=== PATIENT | male | born 1940 | race Caucasian/White ===

== ENCOUNTER → 2017-02-01 | Outpatient (CLI) | payer MEDICARE ==
--- NOTE | 2017-02-01 09:35 | CT ---
EXAMINATION TYPE: CT brain wo con DATE OF EXAM: 02/01/2017 9:31 AM COMPARISON: NONE HISTORY: Change in Memory CT DLP: 1014.[address] of the brain was performed. The ventricles, basal cisterns and sulci overlying the cerebral convexities demonstrate mild enlargem ent. There is no evidence for intracranial hemorrhage or sulcal effacement. There is decreased attenuation about the periventricular white matter and deep white matter of both c erebral hemispheres, compatible with chronic small vessel ischemia. Differential diagnosis does inclu de demyelination. No mass effects are seen.No midline shift. Osseous calvarium is intact. If symptoms persist consider MRI. IMPRESSION: 1. Age related atrophic and chronic small vessel ischemic change without acute intracranial process s een at this time.
== END | disposition home or self-care (01) ==
LOC: RADCTMAIN 09:09
PROVIDERS: ATTEND Internal Medicine
DX: F01.50 Vascular dementia, unspecified severity, without behavioral disturbance, psychotic disturbance, mood disturbance, and anxiety (principal)
CPT/HCPCS: 70450

== ENCOUNTER → 2019-10-09 | Outpatient (CLI) | payer MEDICARE ==
[~2019-10-09] MED LIST: REGADENOSON 0.4 MG/5 ML SYRINGE IV ONE
--- NOTE | 2019-10-09 11:21 | EST ---
EXERCISE STRESS DATE OF SERVICE: 10/09/2019 AGE: 79 SEX: Male HT: 5'10" WT: 160 pounds PROTOCOL: Lexiscan Cardiolite STAGE: DURATION OF EXERCISE: HEART RATE REST: 53 BLOOD PRESSURE REST: 148/93 MAXIMUM HEART RATE ACHIEVED: 106 MAXIMUM BLOOD PRESSURE: 148/93 85% MPHR: 100% MPHR: METS: INDICATIONS: Abnormal EKG CLINICAL INFORMATION: Mr. Roberto is a 73-year-old male patient who underwent Lexiscan stress test for an abnormal ECG. Baseline heart rate 53 beats per minute. Baseline blood pressure 148/93 mmHg. Baseline 12-lead ECG shows normal sinus rhythm with normal cardiac intervals. Patient received Lexiscan infusion per protocol. No significant change in heart rate or blood pressure. No ECG abnormalities noted. Nuclear portion of the stress test will be reported separately. MMODL / IJN: [id number] /
--- NOTE | 2019-10-09 11:57 | NM ---
EXAMINATION TYPE: NM stress lexiscan cardiolite DATE OF EXAM: 10/09/2019 COMPARISON: NONE HISTORY: Abnormal EKG TECHNIQUE: After the intravenous administration of 9.6 mCi Tc 99m Sestamibi - Cardiolite resting SPE CT images acquired 60 minutes post injection. The patient received 0.4mg Lexiscan, 25 mCi Tc 99m Sestamibi - Stress images obtained 40 minutes post injection FINDINGS: Review of stress and rest SPECT images demonstrates no distinct perfusion abnormality. Gated analysi s shows normal wall motion with an estimated left ventricular ejection fraction of 58 %. Abnormally e levated TID measured at 1.37. IMPRESSION: Abnormally elevated TID measured at 1.37. This can be seen in balanced 3 vessel ischemia or cardiomyopathy. A Yellow level critical message alert has been initiated for Neil Polanco MD via the [employer] Critical Results System on 10/09/2019 11:54 AM. This message alert has been sent to Neil Polanco MD v ia the preferences provided by the clinician for the receipt of Radiology Critical Findings. Message ID [id number].
== END | disposition home or self-care (01) ==
LOC: RADNMMAIN 08:14
PROVIDERS: ATTEND Internal Medicine
DX: R94.31 Abnormal electrocardiogram [ECG] [EKG] (principal)
CPT/HCPCS: 93017; 78452; A9500; J2785

== ENCOUNTER → 2019-10-31 | Outpatient (CLI) | payer MEDICARE ==
[~2019-10-31] MED LIST changes: +HEPARIN SODIUM 1,000 UN/ML (10ML VL) ONE; +LIDOCAINE 1% INJ 10MG/ML (20 ML MDV) ONE; -REGADENOSON 0.4 MG/5 ML SYRINGE IV ONE; +VERAPAMIL 2.5 MG/ML 2 ML AMP ONE
[2019-10-31 11:39] LABS: HCT 49.2 % (39.0-53.0); HGB 16.3 gm/dL (13.0-17.5); MCH 27.1 pg (25.0-35.0); MCHC 33.2 g/dL (31.0-37.0); MCV 81.6 fL (80.0-100.0); Mean Platelet Volume 6.4; Platelet Count 182 k/uL (150-450); RBC 6.03 m/uL (4.30-5.90); RDW 13.4 % (11.5-15.5); WBC 6.3 k/uL (3.8-10.6)
[2019-10-31 12:04] LABS: Potassium 4.3 mmol/L (3.5-5.1)
== END | disposition home or self-care (01) ==
LOC: LABPAT 11:07
PROVIDERS: ATTEND Internal Medicine Interventional Cardiology
DX: Z01.812 Encounter for preprocedural laboratory examination (principal)
CPT/HCPCS: 36415; 80051; 82565; 84520; 85027

== ENCOUNTER 2019-11-01 09:02 | Day surgery (SDC) | payer MEDICARE ==
[2019-10-31 10:38] VITALS: BMI 23.6
[~2019-11-01 09:02] MED LIST changes: +ALPRAZolam 0.25 MG TAB PO PRN; +ALPRAZolam 0.5 MG TAB PO PRN; +ASPIRIN 325 MG TAB PO STA; +ATORVASTATIN 80 MG TAB PO STA; -HEPARIN SODIUM 1,000 UN/ML (10ML VL) ONE; +HYDROmorphone 0.5 MG/0.5 ML SYRINGE IVP STA; -LIDOCAINE 1% INJ 10MG/ML (20 ML MDV) ONE; +NITROGLYCERIN SL TABS 0.4 MG TAB SUBLINGUAL PRN; +SODIUM CHLORIDE 0.9% 1,000 ML in EMPTY BAG 1 BAG IV ONE; -VERAPAMIL 2.5 MG/ML 2 ML AMP ONE; +hydrALAZINE HCL 20 MG/ML 1 ML VIAL IVP STA
[2019-11-01 09:29] VITALS: RESP 16; TEMP 97.9
[2019-11-01] MEDS ORDERED: SODIUM CHLORIDE 0.9% 1,000 ML IV ONE (09:32)
[2019-11-01] MEDS ORDERED: MIDAZOLAM 2 MG/2 ML VIAL IV ONE (10:27)
[2019-11-01] MEDS ORDERED: LIDOCAINE 1% INJ 10MG/ML (20 ML MDV) SQ ONE (10:28)
[2019-11-01] MEDS: VERAPAMIL SYRINGE (5 MG/10 ML) INTRAARTER ONE ×2 (10:29→10:39)
[2019-11-01] MEDS ORDERED: NITROGLYCERIN 1000MCG/10ML SYRINGE INTRACORON ONE (10:34)
[2019-11-01] MEDS ORDERED: IOPAMIDOL-370 125ML BTL INJ ONE (10:39)
[2019-11-01] MEDS ORDERED: RX INFO: IV CONTRAST WAS GIVEN 1 EACH MISC MISCELLANE PRN (10:48)
[2019-11-01] MEDS ORDERED: SODIUM CHLORIDE 0.9% 1,000 ML IV SCH (11:00)
--- NOTE | 2019-11-01 14:00 | CC ---
CARDIAC CATHETERIZATION REPORT DATE OF SERVICE: 11/01/2019 PERFORMING PHYSICIAN: Zachary Goins MD. PROCEDURES PERFORMED: 1. Selective right and left coronary angiogram. 2. Left heart catheterization. INDICATION: This is a 79-year-old gentleman who scheduled recently to undergo back surgery with L4- L5 laminectomy along with fusion, underwent a stress test by Dr. Polanco and the stress test revealed transient ischemic dilatation of the left ventricle. Because of that, a heart catheterization was advised. APPROACH: Right radial artery. COMPLICATION: None. LEVEL OF SEDATION: Moderate with sedation length of 13 minutes. PROCEDURE DESCRIPTION: After obtaining an informed consent, the patient was brought to the cardiac golf course laborer. The right radial artery was cannulated using micropuncture technique, the micropuncture wire passed easily, then I placed a 6-Portuguese sheath in the right radial artery. After that, I did give the patient 2 mg of verapamil IA and 10,000 units of heparin IV. I did selective right and left coronary angiogram. Selective right coronary angiogram was performed using JR4 catheter. Selective left coronary angiogram was performed using JL3.5 catheter. Left heart catheterization was performed using the JR4 catheter which crossed the aortic valve then I did pullback across the valve after the catheter was flushed. The procedure was completed without any complication. SELECTIVE CORONARY ANGIOGRAM: 1. The right coronary artery is a large caliber vessel and it is a codominant vessel. The proximal right coronary artery has disease, appeared to be in the range of 30% to 40%. The mid right appeared to be normal and gives rise into an acute marginal branch which seems to be normal. The right coronary artery appeared to have mild disease only distally. 2. The left main is angiographically normal. It bifurcates into LCX and LAD. 3. The LCX is a large caliber vessel and is a dominant vessel. The proximal LCX appeared to be normal and gives rise into a large OM branch which appeared to be angiographically normal. The mid circumflex is normal as well and the circumflex distally appeared to be normal and bifurcates into PDA and PLV branches, both appeared to be angiographically normal. 4. The LAD, the proximal LAD appeared to have mild disease only. It gives rise into a large diagonal branch which seems to be normal. The mid LAD and distal LAD appeared to be angiographically normal. 5. HEMODYNAMICS: The LVEDP was 10 mmHg without significant gradient across the aortic valve. CONCLUSION: 1. Mild coronary artery disease involving a medium-sized codominant right coronary artery. 2. Normal left ventricular end-diastolic pressure. POSTPROCEDURE MANAGEMENT: 1. Maximize medical treatment. 2. Follow up with the patient. DEVORAH / KRAIG: [id number] /
[2019-11-01 19:00] VITALS: BP 148/70; PULSE 54
== END 2019-11-01 15:25 | disposition home or self-care (01) ==
LOC: CATHCVL 09:02
PROVIDERS: ATTEND Internal Medicine Interventional Cardiology
DX: I25.110 Atherosclerotic heart disease of native coronary artery with unstable angina pectoris (principal); I10 Essential (primary) hypertension; E78.00 Pure hypercholesterolemia, unspecified; Z79.82 Long term (current) use of aspirin; Z79.899 Other long term (current) drug therapy
CPT/HCPCS: 93458; C1769; C1894; J2250; J2001; J1644; Q9967

== ENCOUNTER → 2023-09-07 | Outpatient (CLI) | payer MEDICARE ==
--- NOTE | 2023-09-07 15:57 | NM ---
EXAMINATION TYPE: NM bone scan whole body DATE OF EXAM: 09/07/2023 COMPARISON: NONE CLINICAL INDICATION: Male, 83 years old with history of R97.20 Elevated PSA; TECHNIQUE: Delayed whole-body scanning was performed following the injection of 24.2 mCi Tc 99m MDP. Images acquired 3 hours post injection. FINDINGS: Scattered increased areas of tracer activity such as at the bilateral shoulders, sternoclavicular kody nts, posterior elements of the cervical spine especially on the right, and towards the left in the mi d lumbar spine. Also extensive at the right base of the thumb and right knee. Photopenia at the left hip suggests prior hip replacement. Increased activity along the medial aspect of the left hindfoot i s nonspecific and could represent contamination or heterotopic ossification. No suspicious distributi on of tracer is seen. IMPRESSION: Extensive degenerative tracer activity as outlined above. No definite scintigraphic evidence for osse ous metastatic disease.
== END | disposition home or self-care (01) ==
LOC: RADNMMAIN 10:00
PROVIDERS: ATTEND Internal Medicine
DX: R97.20 Elevated prostate specific antigen [PSA] (principal)
CPT/HCPCS: 78306; A9503

== ENCOUNTER → 2023-10-04 | Outpatient (CLI) | payer MEDICARE ==
--- NOTE | 2023-10-04 10:30 | CT ---
EXAMINATION TYPE: CT brain wo con DATE OF EXAM: 10/04/2023 COMPARISON: 02/01/2017 HISTORY: vascular dementia, TIA CT DLP: 1090.4 mGycm Automated exposure control for dose reduction was used. FINDINGS: On changes of chronic sinusitis. Nasal septal deviation. Orbits are symmetric. Calvarium appears to b e intact. Craniocervical junction maintained. Moderate generalized degenerative change. There is no evidence of midline shift or mass effect. No ac [place] hemorrhage. There is advanced degenerative change of the atlantoaxial joint with pannus posterior ly. This results in a mild impression upon the cervical medullary junction. IMPRESSION: 1. Moderate degenerative and nonspecific mild white matter changes most typical of remote ischemia. 2. There is atlantoaxial degenerative change and a sizable posterior pannus which results in mild mas s effect upon the cervical spinal cord\ medullary junction. Recommend follow-up MRI.
== END | disposition home or self-care (01) ==
LOC: RADCTMAIN 09:59
PROVIDERS: ATTEND Internal Medicine
DX: F01.50 Vascular dementia, unspecified severity, without behavioral disturbance, psychotic disturbance, mood disturbance, and anxiety (principal); G45.9 Transient cerebral ischemic attack, unspecified; G93.89 Other specified disorders of brain; M47.891 Other spondylosis, occipito-atlanto-axial region; H16.429 Pannus (corneal), unspecified eye
CPT/HCPCS: 70450

== ENCOUNTER 2024-09-07 16:43 | Emergency (ER) | payer MEDICARE ==
[2024-09-07 16:48] VITALS: TEMP 98
--- NOTE | 2024-09-07 17:53 | ED ---
Head Injury HPI - General Chief complaint: Head Injury Stated complaint: Fall, head injury Time Seen by Provider: 09/07/24 17:00 Source: patient, family, RN notes reviewed Mode of arrival: ambulatory Limitations: no limitations - History of Present Illness Initial comments: 84-year-old male with history of dementia presents with for head injury leo or to arrival. Patient was retrieving the mail from the mailbox when he lost his balance over the decorative rock surrounding the mailbox and fell onto the concrete face first. Denies loss of consciousness. Believes this was a mechanical fall. Takes baby aspirin daily, otherwise no blood thinners. He has an abrasion to the forehead and bridge of nose. No other injuries. Denies chest pain, shortness of breath, headache, lightheadedness. States he can breathe through both nares. - Related Data Home Medications Medication Instructions Recorded Confirmed Aspirin 81 mg PO DAILY 10/31/19 11/01/19 Cyanocobalamin (Vitamin B-12) 1,000 mcg PO DAILY 10/31/19 11/01/19 [Vitamin B-12] Magnesium 200 mg PO DAILY 10/31/19 11/01/19 Memantine HCl/Donepezil HCl 1 each PO HS 10/31/19 11/01/19 [Namzaric 21 mg-10 mg Capsule] Naproxen Sodium [Aleve] 220 mg PO BID PRN 10/31/19 10/31/19 Hammond-3 Fatty Acids [Hammond-3] 1,000 mg PO DAILY 10/31/19 11/01/19 Previous Rx's Medication Instructions Recorded Cephalexin [Keflex] 500 mg PO Q12HR 5 Days #10 cap 09/07/24 Allergies/Adverse reactions: Allergies Allergy/AdvReac Type Severity Reaction Status Date / Time No Known Allergies Allergy Unverified 11/01/19 09:23 Review of Systems ROS Statement: Those systems with pertinent positive or pertinent negative responses have been documented in the HPI. ROS Other: All systems not noted in ROS Statement are negative. Past Medical History Past Medical History: Cancer, Dementia, Memory Impairment, Osteoarthritis (OA) Additional Past Medical History / Comment(s): hx. skin cancer lip, vascular dementia, supposed to have another back surgery next week [facility] History of Any Multi-Drug Resistant Organisms: None Reported Past Surgical History: Back Surgery, Hernia Repair, Joint Replacement Additional Past Surgical History / Comment(s): back surg. x2, left hip replaced & then revision Past Anesthesia/Blood Transfusion Reactions: Previous Problems w/ Anesthesia Additional Past Anesthesia/Blood Transfusion Reaction / Comment(s): very slow to wake up Past Psychological History: No Psychological Hx Reported Past Alcohol Use History: None Reported Past Drug Use History: None Reported - Past Family History Mother Family Medical History: No Reported History General Exam Limitations: no limitations General appearance: alert, in no apparent distress Head exam: Present: normocephalic, other (Abrasion present on forehead and bridge of nose. Minimal active bleeding. There is a nasal deformity present.) Eye exam: Present: normal appearance, PERRL, EOMI. Absent: scleral icterus, conjunctival injection, periorbital swelling Pupils: Present: normal accommodation ENT exam: Present: normal oropharynx, other (Nares patent bilaterally) Neck exam: Present: normal inspection. Absent: tenderness, meningismus, lymphadenopathy Respiratory exam: Present: normal lung sounds bilaterally. Absent: respiratory distress, wheezes, rales, rhonchi, stridor Cardiovascular Exam: Present: regular rate, normal rhythm, normal heart sounds. Absent: systolic murmur, diastolic murmur, rubs, gallop, clicks Neurological exam: Present: alert, oriented X3, CN II-XII intact Psychiatric exam: Present: normal affect, normal mood Skin exam: Present: warm, dry, intact, normal color. Absent: rash Course Vital Signs 09/07/24 16:44 Temperature 98 F Pulse Rate 66 Respiratory 16 Rate Blood Pressure 155/79 O2 Sat by Pulse 98 Oximetry Medical Decision Making - Medical Decision Making Was pt. sent in by a medical professional or institution (, PA, BOLT [employer]ER, urgent care, hospital, or penitentiary...) When possible be specific @ -No Did you speak to anyone other than the patient for history (EMS, parent, family, police, friend...)? What history was obtained from this source @ - supplemented history Did you review nursing and triage notes (agree or disagree)? Why? @ -I reviewed and agree with nursing and triage notes Were old charts reviewed (outside hosp., previous admission, EMS record, old EKG, old radiological studies, urgent care reports/EKG's, penitentiary records)? Report findings @ -No old charts were reviewed Differential Diagnosis (chest pain, altered mental status, abdominal pain women, abdominal pain men, vaginal bleeding, weakness, fever, dyspnea, syncope, headache, dizziness, GI bleed, back pain, seizure, CVA, palpatations, mental health, musculoskeletal)? @ -Differential Musculoskeletal Skull fracture, nasal fracture, intracranial bleed, concussion, muscular strain, contusion, ligament sprain, fracture, arthritis, septic arthritis, bursitis, cellulitis, muscle spasm, nerve compression, DVT, arterial occlusion, herpes zoster, electrolyte abnormality, tumor.... This is not meant to be in all inclusive list EKG interpreted by me (3pts min.). @ -None X-rays interpreted by me (1pt min.). @ -None done CT interpreted by me (1pt min.). @ -None done U/S interpreted by me (1pt. min.). @ -None done What testing was considered but not performed or refused? (CT, X-rays, U/S, labs)? Why? @ -None What meds were considered but not given or refused? Why? @ -None Did you discuss the management of the patient with other professionals (professionals i.e. , PA, BOLT MAKER, lab, RT, psych nurse, foster care social worker, turning machine operator, teacher, hotel security officer, case monitor)? Give summary @ -No Was smoking cessation discussed for >3mins.? @ -No Was critical care preformed (if so, how long)? @ -No Were there social determinants of health that impacted care today? How? (Homelessness, low income, unemployed, alcoholism, drug addiction, transportation, low edu. Level, literacy, decrease access to med. care, usp, rehab)? @ -No Was there de-escalation of care discussed even if they declined (Discuss DNR or withdrawal of care, Hospice)? DNR status @ -No What co-morbidities impacted this encounter? (DM, HTN, Smoking, COPD, CAD, Cancer, CVA, ARF, Chemo, Hep., AIDS, mental health diagnosis, sleep apnea, morbid obesity)? @ -None Was patient admitted / discharged? Hospital course, mention meds given and route, prescriptions, significant lab abnormalities, going to OR and other pertinent info. @ -Discharged. This is an 84-year-old male with history of dementia presenting with for head injury status post mechanical fall 1 hour ago. Denies blood thinners. On examination, there is a nasal deformity and abrasion on forehead. Neurological examination is unremarkable. Tetanus was updated. CT facial bones revealed suspected nasal bone fracture, possible maxillary spine fracture. CT brain and C-spine revealed no acute process. Patient and updated on CT findings. Wounds were thoroughly irrigated. 1 suture was placed with no complications. Patient was placed on Keflex for antibacterial prophylaxis given first dose in ER. Advised to follow-up with PCP and ENT. Supportive care discussed. Instructed to not blow nose.. All questions answered at bedside. Case was discussed with my ED attending Dr. Horton. Patient discharged stable condition. Undiagnosed new problem with uncertain prognosis? @ -No Drug Therapy requiring intensive monitoring for toxicity (Heparin, Nitro, Insulin, Cardizem)? @ -No Were any procedures done? @ -Yes, 1 suture placed with no complications Diagnosis/symptom? @ -Nasal fracture, laceration to nose Acute, or Chronic, or Acute on Chronic? @ -Acute Uncomplicated (without systemic symptoms) or Complicated (systemic symptoms)? @ -Uncomplicated Side effects of treatment? @ -No Exacerbation, Progression, or Severe Exacerbation? @ -No Poses a threat to life or bodily function? How? (Chest pain, USA, CT, pneumonia, PE, COPD, DKA, ARF, appy, cholecystitis, CVA, Diverticulitis, Homicidal, Suicidal, threat to staff... and all critical care pts) @ -No Disposition Clinical Impression: Nasal bone fracture, Laceration of nose Disposition: HOME SELF-CARE Condition: Stable Instructions (If sedation given, give patient instructions): Nasal Fracture (ED), Facial Laceration (ED) Additional Instructions: Keep wound dry for 24 hours, then you may gently wash wound with antibacterial soap and water. Follow-up with ENT in 6 to 10 days. Do not blow your nose un til ENT follow-up. Follow-up with PCP in 5 to 7 days for suture removal. Take Keflex twice daily for 5 days for antibacterial prophylaxis. Take Tylenol as needed for pain. Please return to the Emergency Department if symptoms worsen or any other concerns. Prescriptions: Cephalexin [Keflex] 500 mg PO Q12HR 5 Days #10 cap Is patient prescribed a controlled substance at d/c from ED?: No Referrals: Neil Polanco MD [Primary Care Provider] - 1-2 days Pepe Beatty MD [STAFF PHYSICIAN] - 1-2 days Time of Disposition: 19:11
--- NOTE | 2024-09-07 18:09 | CT ---
EXAMINATION TYPE: CT brain bryce wo con DATE OF EXAM: 09/07/2024 COMPARISON: 10/04/2023 HISTORY: FALL CT DLP: 1093.1 mGycm, Automated exposure control for dose reduction was used. CONTRAST: Patient injected with 0 mL of Isovue 300. CT of the brain is performed utilizing 3 mm thick sections through the posterior fossa and 3 mm thick sections through the remaining calvarium. Study is performed within 24 hours of arrival to the hospital. No abnormal hyperdensity is present to suggest an acute intracranial hemorrhage. No mass lesion is evident. No acute infarcts are evident. Ventricles and sulci are appropriate for the patient age. Soft tissue swelling is over the right frontal region. No underlying fracture is evident. Mucosal thickening is through the ethmoid air cells. Some mild mucosal thickening within the left pos terior sphenoid sinus. Mucosal thickening is through the dependent and inferior bilateral maxillary s inuses. Mastoid air cells are clear. IMPRESSIONS: 1. No acute intracranial process. Follow-up MRI can be performed as clinically indicated. 2. Soft tissue swelling superficial right frontal region. 3. Atrophy right CT cervical spine. COMPARISON: None CT of the cervical spine is performed in the axial plane at 2 mm thick sections. Reconstructed image s in the coronal, and sagittal plane are reviewed on the computer. No acute fractures are evident. There is some side bending towards the right which can be positional. There is loss of disc height throughout the cervical spine. This is especially noted at C4-5 C5-6. So me vacuum disc phenomenon is present C5-6 C6-7. Anterior vertebral body spurring is present C3-T1. So me posterior vertebral body spurring is inferior posterior C3 and C6-7 level. Vertebral body heights are preserved. No spinal canal stenosis is evident. There is some mild canal narrowing posterior to the spur at C3 Some right foraminal narrowing is present C2-3 bilateral moderate to severe foraminal stenosis is pre sent at C3-4. Severe foraminal stenosis is present at C4-5 and C5-6. IMPRESSION: 1. No acute osseous abnormality cervical spine. 2. Multilevel degenerative disc changes with severe foraminal stenosis discussed above. 3. Some posterior endplate spurring at C3 is mild narrowing without stenosis of spinal canal [facility], Workstation: [facility], 09/07/2024 6:07 PM
--- NOTE | 2024-09-07 18:14 | CT ---
EXAMINATION TYPE: CT facial bones wo con DATE OF EXAM: 09/07/2024 COMPARISON: None HISTORY: FALL CT DLP: COMBINED WITH HEAD mGycm CONTRAST: 0 mL of Isovue 300 The paranasal sinuses are examined in the axial plane at 2 mm thick sections. Reconstructed images i n the coronal plane were obtained. There is dental amalgam scatter artifact Mucosal thickening is through the inferior maxillary sinuses bilaterally. Mucosal thickening and orlin e opacifications throughout ethmoid air cells. Small amount of mucosal thickening is in the posterio r lateral left sphenoid sinus The frontal sinuses are clear. The septum is evaluated. There is septal deviation to the right. Right septal spur is present. The ostiomeatal units are patent. There may be nasal bone fracture present. Correlate with location of the patient's pain. Tiny fracture of the anterior maxillary spine is not excluded. Orbital floor and medial orbital avalos appear intact. Frontal bone appears intact soft tissue swellin g site. Greater wings of the sphenoid zygomatic arches are intact. Temporomandibular junctions appear normal. Mandible and maxilla appear intact IMPRESSION: 1. Suspected fracture of the nasal bone. Possible maxillary spine fracture. 2. Clinical consideration for chronic paranasal sinus disease. [facility], Workstation: [facility], 09/07/2024 6:12 PM
[2024-09-07] MEDS: DIPH,PERTUS(ACELL)TETVAC-LF 0.5 ML VIAL IM ONE (18:45)
[2024-09-07] MEDS: LIDOCAINE 1% INJ 10MG/ML (20 ML MDV) SQ ONE (18:45)
[2024-09-07] MEDS: CEPHALEXIN 500 MG CAP PO STA (19:27)
[2024-09-07 19:38] VITALS: BP 119/87; PULSE 64; RESP 17
== END 2024-09-07 19:38 | disposition home or self-care (01) ==
LOC: EC 16:43
CPT/HCPCS: 70450; 70486; 72125; 90471; 90715; 99283

== ENCOUNTER 2024-10-20 14:45 | Observation (INO) | payer MEDICARE ==
[2024-10-20 16:21] LABS: Appearance,Urine Clear (Clear); Bilirubin,Urine Negative (Negative); Blood,Urine Negative (Negative); Color,Urine Yellow; Glucose,Urine (UA) Negative (Negative); Ketones,Urine Trace (Negative); Leukocyte Esterase,Urine Negative (Negative); Nitrite,Urine Negative (Negative); Protein,Urine Trace (Negative); Specific Gravity,Urine 1.034 (1.001-1.035)
[2024-10-20 16:37] LABS: Basophils % (A) 0 %; Eosinophils # (A) 0.2 k/uL (0-0.7); Eosinophils % (A) 2 %; HCT 43.7 % (39.0-53.0); Lymphocytes # (A) 1.2 k/uL (1.0-4.8); Lymphocytes % (A) 19 %; MCH 25.1 pg (25.0-35.0); MCHC 32.1 g/dL (31.0-37.0); MCV 78.1 fL (80.0-100.0); Mean Platelet Volume 7.7; Monocytes # (A) 0.6 k/uL (0-1.0); Monocytes % (A) 10 %; Neutrophils # (A) 4.3 k/uL (1.3-7.7); Neutrophils % (A) 67 %; Platelet Count 174 k/uL (150-450); RDW 14.1 % (11.5-15.5); WBC 6.5 k/uL (3.8-10.6)
[2024-10-20 16:49] LABS: ALT 22 U/L (4-49); AST 24 U/L (17-59); African American GFR (CKD) >90 (>60 ml/min/1.73 sqM); Albumin 3.4 g/dL (3.5-5.0); Alkaline Phosphatase 102 U/L (38-126); Anion Gap 4 mmol/L; Blood Urea Nitrogen 28 mg/dL (9-20); Calcium 8.6 mg/dL (8.4-10.2); Carbon Dioxide 26 mmol/L (22-30); Chloride 110 mmol/L (98-107); Glucose 77 mg/dL (74-99); Non-African American GFR(CKD) 80 (>60 ml/min/1.73 sqM); Sodium 140 mmol/L (137-145); Total Protein 6.5 g/dL (6.3-8.2)
--- NOTE | 2024-10-20 17:18 | ED ---
Altered Mental Status HPI - General Chief Complaint: Altered Mental Status Stated Complaint: insomnia Source: patient, family Mode of arrival: wheelchair Limitations: no limitations - History of Present Illness Initial Comments: 84-year-old male with past medical history of dementia presents emergency department with visual hallucination at bedside helps provide history. States that the patient has been hallucinating for the past 4 days which has caused him to not want to sleep. She has noted that he has been talking to himself. He is moving his hands and motion as if he is holding some objects which she is not. She does admit to a history of dementia but states symptoms over the past 4 days have been exacerbated. She does have Zyprexa at home to give the patient to help with his sleep. States that she tried to utilize it however it is not working. She called Dr. Stephen's office and was told to come into the emergency department. She does report a fall earlier this year. Reports that the patient's confusion has been worse since the fall. Denies any fevers. No recent medication changes. No suicidal or homicidal ideations. No other alleviating, precipitating or modifying factors - Related Data Home Medications Medication Instructions Recorded Confirmed Aspirin 81 mg PO DAILY 10/31/19 11/01/19 Cyanocobalamin (Vitamin B-12) 1,000 mcg PO DAILY 10/31/19 11/01/19 [Vitamin B-12] Magnesium 200 mg PO DAILY 10/31/19 11/01/19 Memantine HCl/Donepezil HCl 1 each PO HS 10/31/19 11/01/19 [Namzaric 21 mg-10 mg Capsule] Naproxen Sodium [Aleve] 220 mg PO BID PRN 10/31/19 10/31/19 Kathleen-3 Fatty Acids [Kathleen-3] 1,000 mg PO DAILY 10/31/19 11/01/19 Previous Rx's Medication Instructions Recorded Cephalexin [Keflex] 500 mg PO Q12HR 5 Days #10 cap 09/07/24 Allergies Allergy/AdvReac Type Severity Reaction Status Date / Time No Known Allergies Allergy Verified 10/20/24 14:46 Review of Systems ROS Statement: Those systems with pertinent positive or pertinent negative responses have been documented in the HPI. ROS Other: All systems not noted in ROS Statement are negative. Past Medical History Past Medical History: Cancer, Dementia, Memory Impairment, Osteoarthritis (OA) Additional Past Medical History / Comment(s): hx. skin cancer lip, vascular dementia, supposed to have another back surgery next week @[facility] History of Any Multi-Drug Resistant Organisms: None Reported Past Surgical History: Back Surgery, Hernia Repair, Joint Replacement Additional Past Surgical History / Comment(s): back surg. x2, left hip replaced & then revision Past Anesthesia/Blood Transfusion Reactions: Previous Problems w/ Anesthesia Additional Past Anesthesia/Blood Transfusion Reaction / Comment(s): very slow to wake up Past Psychological History: No Psychological Hx Reported Smoking Status: Former smoker Past Alcohol Use History: None Reported Past Drug Use History: None Reported - Past Family History Mother Family Medical History: No Reported History General Exam Limitations: no limitations Course Vital Signs 10/20/24 10/20/24 10/20/24 14:47 16:00 18:50 Temperature 97.3 F L 97.6 F Pulse Rate 89 58 L 83 Respiratory 18 16 16 Rate Blood Pressure 126/86 142/77 155/97 O2 Sat by Pulse 99 99 98 Oximetry Medical Decision Making - Medical Decision Making Was pt. sent in by a medical professional or institution (, PA, RETAIL DELIVERY DRIVER, urgent care, hospital, or group home...) When possible be specific @ -[No] Did you speak to anyone other than the patient for history (EMS, parent, family, police, friend...)? What history was obtained from this source @ -[No] Did you review nursing and triage notes (agree or disagree)? Why? @ -[I reviewed and agree with nursing and triage notes] Were old charts reviewed (outside hosp., previous admission, EMS record, old EKG, old radiological studies, urgent care reports/EKG's, group home records)? Report findings @ -[No old charts were reviewed] Differential Diagnosis (chest pain, altered mental status, abdominal pain women, abdominal pain men, vaginal bleeding, weakness, fever, dyspnea, syncope, headache, dizziness, GI bleed, back pain, seizure, CVA, palpatations, mental h ealth, musculoskeletal)? @ -[not applicable] EKG interpreted by me (3pts min.). @ -Yes and demonstrates sinus rhythm with rate of 60. Parable 153. QRS 77. QTc of 407. No acute ST segment elevations or depressions X-rays interpreted by me (1pt min.). @ -[None done] CT interpreted by me (1pt min.). @ -[None done] U/S interpreted by me (1pt. min.). @ -[None done] What testing was considered but not performed or refused? (CT, X-rays, U/S, labs)? Why? @ -[None] What meds were considered but not given or refused? Why? @ -[None] Did you discuss the management of the patient with other professionals (professionals i.e. , PA, RETAIL DELIVERY DRIVER, lab, RT, psych nurse, social media strategist, applications sales representative, teacher, correction officer supervisor, director of casework department)? Give summary @ -[No] Was smoking cessation discussed for >3mins.? @ -[No] Was critical care preformed (if so, how long)? @ -[No] Were there social determinants of health that impacted care today? How? (Homelessness, low income, unemployed, alcoholism, drug addiction, transportation, low edu. Level, literacy, decrease access to med. care, fpc, rehab)? @ -[No] Was there de-escalation of care discussed even if they declined (Discuss DNR or withdrawal of care, Hospice)? DNR status @ -[No] What co-morbidities impacted this encounter? (DM, HTN, Smoking, COPD, CAD, Cancer, CVA, ARF, Chemo, Hep., AIDS, mental health diagnosis, sleep apnea, morbid obesity)? @ -[None] Was patient admitted / discharged? Hospital course, mention meds given and route, prescriptions, significant lab abnormalities, going to OR and other pertinent info. @ -[hospital course] Undiagnosed new problem with uncertain prognosis? @ -[No] Drug Therapy requiring intensive monitoring for toxicity (Heparin, Nitro, Insulin, Cardizem)? @ -[No] Were any procedures done? @ -[No] Diagnosis/symptom? @ -[default] Acute, or Chronic, or Acute on Chronic? @ -[default] Uncomplicated (without systemic symptoms) or Complicated (systemic symptoms)? @ -[default] Side effects of treatment? @ -[No] Exacerbation, Progression, or Severe Exacerbation? @ -[No] Poses a threat to life or bodily function? How? (Chest pain, [place], [place], pneumonia, PE, COPD, DKA, ARF, appy, cholecystitis, CVA, Diverticulitis, Homicidal, Suicidal, threat to staff... and all critical care pts) @ -[No] - Lab Data Result diagrams: 10/20/24 15:46 10/20/24 15:46 Lab Results 10/20/24 10/20/24 10/20/24 Range/Units 15:46 15:46 15:46 WBC 6.5 (3.8-10.6) k/uL RBC 5.60 (4.30-5.90) m/uL Hgb 14.0 (13.0-17.5) gm/dL Hct 43.7 (39.0-53.0) % MCV 78.1 L (80.0-100.0) fL MCH 25.1 (25.0-35.0) pg MCHC 32.1 (31.0-37.0) g/dL RDW 14.1 (11.5-15.5) % Plt Count 174 (150-450) k/uL MPV 7.7 Neutrophils % 67 % Lymphocytes % 19 % Monocytes % 10 % Eosinophils % 2 % Basophils % 0 % Neutrophils # 4.3 (1.3-7.7) k/uL Lymphocytes # 1.2 (1.0-4.8) k/uL Monocytes # 0.6 (0-1.0) k/uL Eosinophils # 0.2 (0-0.7) k/uL Basophils # 0.0 (0-0.2) k/uL Sodium 140 (137-145) mmol/L Potassium 4.0 (3.5-5.1) mmol/L Chloride 110 H (98-107) mmol/L Carbon Dioxide 26 (22-30) mmol/L Anion Gap 4 mmol/L BUN 28 H (9-20) mg/dL Creatinine 0.87 (0.66-1.25) mg/dL Est GFR (CKD-EPI)AfAm >90 (>60 ml/min/1.73 sqM) Est GFR (CKD-EPI)NonAf 80 (>60 ml/min/1.73 sqM) Glucose 77 (74-99) mg/dL Calcium 8.6 (8.4-10.2) mg/dL Total Bilirubin 2.0 H (0.2-1.3) mg/dL AST 24 (17-59) U/L ALT 22 (4-49) U/L Alkaline Phosphatase 102 (38-126) U/L Troponin I <0.012 (0.000-0.034) ng/mL Total Protein 6.5 (6.3-8.2) g/dL Albumin 3.4 L (3.5-5.0) g/dL Urine Color Urine Appearance (Clear) Urine pH (5.0-8.0) Ur Specific [place] (1.001-1.035) Urine Protein (Negative) Urine Glucose (UA) (Negative) Urine Ketones (Negative) Urine Blood (Negative) Urine Nitrite (Negative) Urine Bilirubin (Negative) Urine Urobilinogen (<2.0) mg/dL Ur Leukocyte Esterase (Negative) 10/20/24 Range/Units 15:46 WBC (3.8-10.6) k/uL RBC (4.30-5.90) m/uL Hgb (13.0-17.5) gm/dL Hct (39.0-53.0) % MCV (80.0-100.0) fL MCH (25.0-35.0) pg MCHC (31.0-37.0) g/dL RDW (11.5-15.5) % Plt Count (150-450) k/uL MPV Neutrophils % % Lymphocytes % % Monocytes % % Eosinophils % % Basophils % % Neutrophils # (1.3-7.7) k/uL Lymphocytes # (1.0-4.8) k/uL Monocytes # (0-1.0) k/uL Eosinophils # (0-0.7) k/uL Basophils # (0-0.2) k/uL Sodium (137-145) mmol/L Potassium (3.5-5.1) mmol/L Chloride (98-107) mmol/L Carbon Dioxide (22-30) mmol/L Anion Gap mmol/L BUN (9-20) mg/dL Creatinine (0.66-1.25) mg/dL Est GFR (CKD-EPI)AfAm (>60 ml/min/1.73 sqM) Est GFR (CKD-EPI)NonAf (>60 ml/min/1.73 sqM) Glucose (74-99) mg/dL Calcium (8.4-10.2) mg/dL Total Bilirubin (0.2-1.3) mg/dL AST (17-59) U/L ALT (4-49) U/L Alkaline Phosphatase (38-126) U/L Troponin I (0.000-0.034) ng/mL Total Protein (6.3-8.2) g/dL Albumin (3.5-5.0) g/dL Urine Color Yellow Urine Appearance Clear (Clear) Urine pH 5.0 (5.0-8.0) Ur Specific [place] 1.034 (1.001-1.035) Urine Protein Trace H (Negative) Urine Glucose (UA) Negative (Negative) Urine Ketones Trace H (Negative) Urine Blood Negative (Negative) Urine Nitrite Negative (Negative) Urine Bilirubin Negative (Negative) Urine Urobilinogen 2.0 (<2.0) mg/dL Ur Leukocyte Esterase Negative (Negative) Disposition Clinical Impression: Insomnia, Psychosis, Visual hallucination Disposition: ADMITTED IP TO THIS [facility] Condition: Stable Is patient prescribed a controlled substance at d/c from ED?: No Referrals: Neil Polanco MD [Primary Care Provider] - 1-2 days Time of Disposition: 19:04 Decision to Admit Reason: Admit from EC Decision Date: 10/20/24 Decision Time: 19:04
--- NOTE | 2024-10-20 18:22 | CT ---
EXAMINATION TYPE: CT brain wo con DATE OF EXAM: 10/20/2024 5:59 PM COMPARISON: 09/07/2024. CLINICAL INDICATION: Male, 84 years old with history of ams, confused TECHNIQUE: Brain: Axial CT images of the brain were obtained with coronal and sagittal reformats created and rev iewed. Contrast used: None. Oral contrast used: None. CT DLP: 1168.8 mGycm, Automated exposure control for dose reduction was used. FINDINGS: Brain: Extra-axial spaces: No abnormal extra-axial fluid collections. Ventricular system: Within normal limits Cerebral parenchyma: No acute intraparenchymal hemorrhage or mass effect. The moreno-white junction is well differentiated. Cerebellum: Unremarkable. Mass effect: No evidence of midline shift. Intracranial vasculature: unremarkable Soft tissues: Normal. Calvarium/osseous structures: No depressed skull fracture. Paranasal sinuses and mastoid air cells: Mild scattered paranasal sinus disease. Visualized orbits: Orbital contents are intact. IMPRESSION: No acute intracranial process. [facility], , 10/20/2024 6:19 PM
[2024-10-20] MEDS ORDERED: NALOXONE 0.4 MG/ML 1 ML VIAL IV PRN (19:04)
[2024-10-21 09:00] LABS: Basophils # (A) 0.02 X 10*3/uL (0.00-0.10); Basophils % (A) 0.4 %; Eosinophils # (A) 0.37 X 10*3/uL (0.04-0.35); HCT 42.1 % (39.6-50.0); HGB 13.2 g/dL (13.0-17.0); Lymphocytes # (A) 1.41 X 10*3/uL (0.90-5.00); Lymphocytes % (A) 26.8 %; MCH 24.6 pg (27.0-32.0); MCHC 31.4 g/dL (32.0-37.0); MCV 78.4 FL (80.0-97.0); Mean Platelet Volume 11.1 FL (9.5-12.2); Monocytes # (A) 0.64 X 10*3/uL (0.20-1.00); Monocytes % (A) 12.2 %; NRBC Per 100 WBC 0 X 10*3/uL (0.00-0.01); Neutrophils # (A) 2.81 X 10*3/uL (1.80-7.70); Neutrophils % (A) 53.4 %; Platelet Count 165 X 10*3/uL (140-440); RBC 5.37 X 10*6/uL (4.40-5.60); RDW 14.7 % (11.5-14.5); WBC 5.26 X 10*3/uL (4.50-10.00)
[2024-10-21 09:09] LABS: BUN/Creat Ratio 30.38 Ratio (12.00-20.00); Blood Urea Nitrogen 24.3 mg/dL (9.0-27.0); Calcium 8.3 mg/dL (8.7-10.3); Carbon Dioxide 23.7 mmol/L (21.6-31.8); Chloride 110 mmol/L (96-109); Glucose 95 mg/dL (70-110); Potassium 3.8 mmol/L (3.5-5.5); Sodium 142 mmol/L (135-145)
[2024-10-21] MEDS ORDERED: QUEtiapine 25 MG TAB PO PRN (12:56)
[2024-10-21] MEDS ORDERED: ACETAMINOPHEN TAB 325 MG TAB PO PRN (13:06)
--- NOTE | 2024-10-21 13:20 | P.CNNES ---
History of Present Illness Consult date: 10/21/24 Chief complaint: Acute Hallucinations, Insomnia History of Present Illness: Mr. Roberto is an 84-year-old male with history of dementia for which he takes Namzaric, history of cancer, arthritis who was admitted to [facility] on October 20 as he was suffering from some visual hallucinations and poor sleep. He was apparently talking to himself and picking at the air. He has noted to have dose of Zyprexa for home use however this was not appearing to be working according to his . He does have a history of falls and had a recent fall approximately a couple couple of months ago with with head injury. On questioning him and this morning he appears pleasantly confused and denies significant hallucinations but is not oriented to place or date and can only follow simple commands at this time. He had a noncontrast CT of the head on October 20 which revealed evidence of atrophy however no acute findings including intracerebral hemorrhage or stroke. Review of Systems limited due to confusion. Pt. denies current problems, though he does not know his location. Past Medical History Past Medical History: Cancer, Dementia, Memory Impairment, Osteoarthritis (OA) Additional Past Medical History / Comment(s): hx. skin cancer lip, vascular dementia, supposed to have another back surgery next week @[facility] History of Any Multi-Drug Resistant Organisms: None Reported Past Surgical History: Back Surgery, Hernia Repair, Joint Replacement Additional Past Surgical History / Comment(s): back surg. x2, left hip replaced & then revision Past Anesthesia/Blood Transfusion Reactions: Previous Problems w/ Anesthesia Additional Past Anesthesia/Blood Transfusion Reaction / Comment(s): very slow to wake up Smoking Status: Former smoker - Past Family History Mother Family Medical History: No Reported History Medications and Allergies Home Medications Medication Instructions Recorded Confirmed Type Aspirin 81 mg PO HS 10/31/19 10/20/24 History Memantine HCl/Donepezil HCl 1 cap PO HS 10/31/19 10/21/24 History [Namzaric 21 mg-10 mg Capsule] [place]-3 Fatty Acids [[place]-3] 1,000 mg PO HS 10/31/19 10/20/24 History Acetaminophen Tab [Tylenol] 650 mg PO Q6H PRN 10/20/24 10/20/24 History Atorvastatin [Lipitor] 40 mg PO HS 10/20/24 10/20/24 History Multivitamins, Thera [Multivitamin 1 tab PO HS 10/20/24 10/20/24 History (formulary)] Allergies Allergy/AdvReac Type Severity Reaction Status Date / Time No Known Allergies Allergy Verified 10/20/24 19:20 Physical Examination - Vital Signs Vital Signs: Vital Signs Temp Pulse Pulse Resp BP BP BP 10/21/24 13:00 98.0 F 55 L 16 144/76 10/21/24 07:00 97.0 F L 52 L 15 116/69 10/21/24 02:00 98.5 F 74 18 154/81 10/20/24 21:01 97.9 F 83 18 154/74 10/20/24 18:50 97.6 F 83 16 155/97 10/20/24 16:00 58 L 16 142/77 10/20/24 14:47 97.3 F L 89 18 126/86 Pulse Ox 10/21/24 13:00 98 10/21/24 07:00 97 10/21/24 02:00 98 10/20/24 21:01 99 10/20/24 18:50 98 10/20/24 16:00 99 10/20/24 14:47 99 Intake and Output 10/20/24 10/21/24 10/21/24 22:59 06:59 14:59 Intake Total 360 200 Balance 360 200 Intake: Oral 360 200 Other: Voiding Method Toilet # Voids 2 3 Weight 68.039 kg - Constitutional General appearance: average body habitus - EENT EENT: PERRL - Respiratory Respiratory: chest non-tender, lungs clear - Cardiovascular Cardiovascular: regular rate, no murmurs Extremities: no peripheral edema bilaterally - Gastrointestinal Gastrointestinal: normoactive bowel sounds, non-distended - Neurologic Cranial nerve examination: PERRL, EOMI, intact Speech examination: intact Detailed motor examination: full strength in all major muscle groups Detailed sensory examination: intact Reflex and gait examination: intact Results - Laboratory Findings CBC and BMP: 10/21/24 05:35 10/21/24 05:35 Abnormal Lab Findings: Abnormal Labs 10/20/24 10/20/24 10/20/24 15:46 15:46 15:46 MCV 78.1 L MCH MCHC RDW Eosinophils # Chloride 110 H BUN 28 H BUN/Creatinine Ratio Calcium Total Bilirubin 2.0 H Albumin 3.4 L Urine Protein Trace H Urine Ketones Trace H 10/21/24 10/21/24 05:35 05:35 MCV 78.4 L MCH 24.6 L MCHC 31.4 L RDW 14.7 H Eosinophils # 0.37 H Chloride 110 H BUN BUN/Creatinine Ratio 30.38 H Calcium 8.3 L Total Bilirubin Albumin Urine Protein Urine Ketones Assessment and Plan Assessment: Visual Hallucinations in setting of dementia as well as poor nighttime sleep Plan: 1. I will order thyroid's panel as well as vitamin B12 and serum ammonia level to look for causes of altered mental status. 2. I will place the patient on Seroquel 25 mg nightly as well as 12.5 mg every 6 hours as needed agitation or hallucinations in an attempt to regulate his sleep cycle. 3. I will also place him on melatonin 5 mg nightly to help regulate his sleep cycle. Number next if the Seroquel appears to work he may be discharged home with this as his most recent Zyprexa appears not to have worked. 4. I neurology will continue to follow him and will see him again tomorrow.
--- NOTE | 2024-10-21 18:37 | P.HPIM ---
History of Present Illness H&P Date: 10/21/24 Chief Complaint: Metabolic encephalopathy/hallucinations HISTORY OF PRESENT ILLNESS: This is an 84-year-old male with a previous medical history significant for mixed hyperlipidemia, history of elevated PSA likely related to prostate cancer, osteoarthritis, vascular dementia with behavioral disturbances, coronary artery disease status post left heart catheterization back in 2019, spondylosis of the lumbar spine status post surgical intervention, patient was in his usual state of health till about a month ago when he had fallen and he landed on the ground, ended up going to the emergency department, had a CT scan of the brain did not show evidence of acute abnormalities, he came back to the office, he had his sutures removed, and the patient was started on Zyprexa 2.5 mg orally once every day recently due to his worsening dementia, and patient developed to have a significant hallucination visual hallucination mostly was picking on stuff in the air, was not able to sleep at all at night, this started on Monday I received a call from his on Monday morning stated the patient is completely confused agitated and he is not sleeping at all, she has not been sleeping as well I asked her to take him to the emergency department for evaluation to rule out any acute abnormalities, taken off the medication which she has taken him off the medication without any relief, he was seen and evaluated in the emergency department, had a CT scan of the brain did not show evidence of acute abnormalities, his laboratory evaluation were fine, but because of worsening dementia he was seen in consultation by neurology who recommended to start the patient on Seroquel instead and admit the patient to the hospital for safety issues, patient will be seen and evaluated by physical therapy and social service agency director, the family is planning to take the patient to subacute rehabilitation as the patient is not able to be at home at this point in time. REVIEW OF SYSTEMS: Constitutional: No documented fever, no chills, no night sweats. No weight change. No weakness, fatigue or lethargy. No daytime sleepiness. EENT: No headache. No blurred vision or double vision, no loss of vision. No loss of Hearing, no ringing in the ears, no dizziness. No nasal drainage or congestion. No epistaxis. No sore throat. Lungs: No shortness of breath, no cough, no sputum production. No wheezing. Reports dyspnea with activity. Cardiovascular: No chest pain, no lower extremity edema. No palpitations. No paroxysmal nocturnal dyspnea. No orthopnea. No lightheadedness or dizziness. No syncopal episodes. Abdominal: Reports no abdominal pain. No nausea, vomiting. No diarrhea. No constipation. No bloody or tarry stools reports loss of appetite. Genitourinary: No dysuria, increased frequency, urgency. No urinary retention. Musculoskeletal: No myalgias. No muscle weakness, no gait dysfunction, positive for frequent falls. poitive for back pain. No neck pain. Integumentary: No wounds, no lesions. No rash or pruritus. No unusual bruising. No change in hair or nails. Neurologic: No aphasia. No facial droop. positive for change in mentation. No head injury. No headache. No paralysis. No paresthesia. Psychiatric: No depression. No anxiety. No mood swings, positive for dementia with hallucination Endocrine: No abnormal blood sugars. No weight change. PAST MEDICAL HISTORY: Mixed hyperlipidemia. Coronary artery disease. Osteoarthritis. Elevated PSA likely prostate cancer. Prediabetes. 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 Vascular dementia with behavioral disturbances. PAST SURGICAL HISTORY: Left heart catheterization 11/01/2019 Posterior lumbar discectomy fusion 11/06/2019 Colonoscopy 06/2016 SOCIAL HISTORY: Patient is a lifelong non-smoker, he denies any alcohol ingestion, he denies any drug use or abuse, he drinks coffee once in a while, he lives with his who is a primary caregiver for him. FAMILY HISTORY: Father at age 79 from prostate cancer and had history of dementia as well, mother at age of 70 from breast cancer, patient has 4 half sisters alive and well, patient has 1 daughter alive and well. PHYSICAL EXAMINATION: General: 84-year-old male laying down in bed appears to be confused. HEENT: Head is atraumatic, normocephalic, pupils were equal round reactive to light and recommendation, extraocular muscle movement were intact, sclera nonicteric, conjunctivae were pale, mucous membranes of the mouth are somewhat dry. Neck: Supple, no JVP, normal carotid upstroke bilaterally, no lymphadenopathy. Chest: Decreased breath sounds at the bases, few rhonchi, no expiratory wheezes, no chest wall tenderness, no intercostal retractions. Heart: First heart sound is normal, second heart sounds normal there is systolic ejection murmur 2/6 located in the left sternal border. Abdomen: Soft, nontender, nondistended, positive bowel sounds. Extremities: There is no edema no calf tenderness DP +2 bilaterally. Neurologic examination: Patient is awake alert and oriented x3, cranial nerves II-12 appear grossly intact, muscle power were 5 out of 5 in upper extremities and 5 out of 5 in bilateral lower extremities, deep tendon reflexes normal bilaterally. ASSESSMENT AND PLAN: 1. Metabolic encephalopathy due to worsening vascular dementia with behavioral disturbances in the form of visual hallucination. Discontinue olanzapine, patient was started already on Seroquel 25 mg at bedtime, monitor the patient very closely, physical therapy evaluation and social work consultation for possible extended-care facility placement. 2. Mixed hyperlipidemia. Continue patient on atorvastatin 40 mg once every day, monitor lipid panel, keep LDL 55-70. 3. Coronary artery disease status post left heart catheterization in October 2019. Continue aspirin 81 g once every day, atorvastatin 40 mg once every day, patient does not have any stable angina or congestive heart failure appears to be stable at this time. 4. Elevated PSA with likely diagnosis of prostate cancer. We will continue watchful waiting, patient is not a candidate for any intervention at this time. 5. Vascular dementia with behavioral disturbances. Continue Namenda 7.5 mg orally twice every day, Aricept 10 mg at bedtime, follow-up with the patient very closely neurology consultation appreciated. 6. Osteoarthritis. Continue Tylenol for pain control, avoid benzodiazepine at this time, avoid any narcotics. 7. Prediabetes. Hemoglobin A1c is up-to-date. 8. 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 Stable at this time. 9. Insomnia. Continue patient on Seroquel 25 mg at bedtime along with melatonin 5 mg at bedtime as well. 10. DVT prophylaxis. Continue Lovenox 40 mg subcutaneous every 24 hours. 11. GI prophylaxis. Continue Protonix 40 mg once every day before breakfast. 12. Admit to inpatient. Estimated length of stay 2 midnights. 13. Patient is full code. Past Medical History Past Medical History: Cancer, Dementia, Memory Impairment, Osteoarthritis (OA) Additional Past Medical History / Comment(s): hx. skin cancer lip, vascular dementia, supposed to have another back surgery next week [facility] on right shoulder History of Any Multi-Drug Resistant Organisms: None Reported Past Surgical History: Back Surgery, Hernia Repair, Joint Replacement Additional Past Surgical History / Comment(s): back surg. x2, left hip replaced & then revision Past Anesthesia/Blood Transfusion Reactions: Previous Problems w/ Anesthesia Additional Past Anesthesia/Blood Transfusion Reaction / Comment(s): very slow to wake up Past Psychological History: No Psychological Hx Reported Smoking Status: Former smoker Past Alcohol Use History: None Reported Additional Past Alcohol Use History / Comment(s): quit smoking in his 50's, smoked @least 35 yrs., doesn't drink anymore Past Drug Use History: None Reported - Past Family History Mother Family Medical History: No Reported History Medications and Allergies Home Medications Medication Instructions Recorded Confirmed Type Aspirin 81 mg PO HS 10/31/19 10/20/24 History Memantine HCl/Donepezil HCl 1 cap PO HS 10/31/19 10/21/24 History [Namzaric 21 mg-10 mg Capsule] [place]-3 Fatty Acids [[place]-3] 1,000 mg PO HS 10/31/19 10/20/24 History Acetaminophen Tab [Tylenol] 650 mg PO Q6H PRN 10/20/24 10/20/24 History Atorvastatin [Lipitor] 40 mg PO HS 10/20/24 10/20/24 History Multivitamins, Thera [Multivitamin 1 tab PO HS 10/20/24 10/20/24 History (formulary)] Allergies Allergy/AdvReac Type Severity Reaction Status Date / Time No Known Allergies Allergy Verified 10/20/24 19:20 Physical Exam Vitals: Vital Signs Temp Pulse Pulse Resp BP BP BP 10/21/24 13:00 98.0 F 55 L 16 144/76 10/21/24 07:00 97.0 F L 52 L 15 116/69 10/21/24 02:00 98.5 F 74 18 154/81 10/20/24 21:01 97.9 F 83 18 154/74 10/20/24 18:50 97.6 F 83 16 155/97 Pulse Ox 10/21/24 13:00 98 10/21/24 07:00 97 10/21/24 02:00 98 10/20/24 21:01 99 10/20/24 18:50 98 Intake and Output 10/21/24 10/21/24 10/21/24 06:59 14:59 22:59 Intake Total 200 118 Balance 200 118 Intake: Oral 200 118 Other: Voiding Method Toilet # Voids 3 2 Results CBC & Chem 7: 10/21/24 05:35 10/21/24 05:35 Labs: Abnormal Lab Results - Last 24 Hours (Table) 10/21/24 10/21/24 Range/Units 05:35 05:35 MCV 78.4 L (80.0-97.0) FL MCH 24.6 L (27.0-32.0) pg MCHC 31.4 L (32.0-37.0) g/dL RDW 14.7 H (11.5-14.5) % Eosinophils # 0.37 H (0.04-0.35) X 10*3/uL Chloride 110 H (96-109) mmol/L BUN/Creatinine Ratio 30.38 H (12.00-20.00) Ratio Calcium 8.3 L (8.7-10.3) mg/dL
[2024-10-21] MEDS: NON FORMULARY DRUG (Omega-3 Fatty Acids [Omega-3] 1,000 MG Capsule) PO SCH (21:00)
[2024-10-21] MEDS: ASPIRIN 81 MG PO SCH (21:13)
[2024-10-21] MEDS: ATORVASTATIN 40 MG TAB PO SCH (21:13)
[2024-10-21] MEDS: MELATONIN 5 MG TABLET PO SCH (21:14)
[2024-10-21] MEDS: MULTIVITAMINS, THERA 1 EACH TAB PO SCH (21:14)
[2024-10-21] MEDS: DONEPEZIL 10 MG TAB PO SCH (21:14)
[2024-10-21] MEDS: MEMANTINE 5 MG TAB PO SCH (21:14)
[2024-10-21] MEDS: QUEtiapine 25 MG TAB PO SCH (21:15)
[2024-10-22 08:22] VITALS: BP 143/66; PULSE 56; RESP 16; TEMP 98.6
[2024-10-22 08:46] LABS: Basophils # (A) 0.02 X 10*3/uL (0.00-0.10); Basophils % (A) 0.3 %; Eosinophils # (A) 0.44 X 10*3/uL (0.04-0.35); Eosinophils % (A) 7.6 %; HGB 13.4 g/dL (13.0-17.0); Lymphocytes # (A) 1.31 X 10*3/uL (0.90-5.00); Lymphocytes % (A) 22.7 %; MCH 24.2 pg (27.0-32.0); MCHC 31.2 g/dL (32.0-37.0); MCV 77.6 FL (80.0-97.0); Mean Platelet Volume 10.8 FL (9.5-12.2); Monocytes # (A) 0.66 X 10*3/uL (0.20-1.00); Monocytes % (A) 11.4 %; NRBC Per 100 WBC 0 X 10*3/uL (0.00-0.01); Neutrophils # (A) 3.33 X 10*3/uL (1.80-7.70); Neutrophils % (A) 57.8 %; Platelet Count 169 X 10*3/uL (140-440); RBC 5.54 X 10*6/uL (4.40-5.60); RDW 14.7 % (11.5-14.5); WBC 5.77 X 10*3/uL (4.50-10.00)
[2024-10-22 08:57] LABS: ALT 18 U/L (10-49); AST 21 U/L (14-35); Albumin 3.4 g/dL (3.8-4.9); Albumin/Globulin Ratio 1.31 Ratio (1.60-3.17); Alkaline Phosphatase 104 U/L (41-126); BUN/Creat Ratio 25.78 Ratio (12.00-20.00); Blood Urea Nitrogen 23.2 mg/dL (9.0-27.0); Calcium 8.6 mg/dL (8.7-10.3); Carbon Dioxide 24.5 mmol/L (21.6-31.8); Chloride 108 mmol/L (96-109); Globulin 2.6 g/dL (1.6-3.3); Glucose 110 mg/dL (70-110); Potassium 3.8 mmol/L (3.5-5.5); Sodium 140 mmol/L (135-145); Total Bilirubin 1.5 mg/dL (0.3-1.2)
[2024-10-22] MEDS: PANTOPRAZOLE 40 MG TABLET PO SCH (09:06)
[2024-10-22] MEDS: ENOXAPARIN 40 MG/0.4 ML SYRINGE SQ SCH (09:06)
--- NOTE | 2024-10-22 12:10 | P.PN ---
Subjective Progress Note Date: 10/22/24 Principal diagnosis: History of Dementia with Acue Hallucinations in Setting of Insomnia Mr. Roberto is an 84-year-old male with history of dementia for which he takes Namzaric, history of cancer, arthritis who was admitted to [facility] on October 20 as he was suffering from some visual hallucinations and poor sleep. He was apparently talking to himself and picking at the air. He has noted to have dose of Zyprexa for home use however this was not appearing to be working according to his . He does have a history of falls and had a recent fall approximately a couple couple of months ago with with head injury. On questioning him and this morning he appears pleasantly confused and denies significant hallucinations but is not oriented to place or date and can only follow simple commands at this time. He had a noncontrast CT of the head on October 20 which revealed evidence of atrophy however no acute findings including intracerebral hemorrhage or stroke. He was seen initially on October 21 and the plan was to try and regulate his sleep by using 25 mg of Seroquel in the evening as well as 25 mg as needed agitation. He was also scheduled for 5 mg of melatonin nightly to help regulate his sleep. On follow-up October 22 patient appears to no longer have any hallucinations and appears to be more alert. He is pleasantly confused however as he does have baseline dementia and is still not able to retain the knowledge he is in the hospital longer than 2 or 3 minutes. He was seen by his last night and she noted that he appears back to be to be back to baseline. Exam: With regards to mental status exam the patient's the patient does exhibit poor memory and is not able to retain information about his locations for longer than 3 minutes. He is able to relate some history about his time in the [facility] however he can follow some simple and complex commands. Cranial nerves II through XII appear intact consultation bilaterally. Motor examination reveals roughly 5/5 strength in the bilateral upper lower extremities. Sensory examinations intact to light touch in the face arm and leg bilaterally. Coordination examination reveals no absent dysmetria on [id number]. Reflex emanation feels 1+ and symmetric reflexes. Conclusion: Mr. Roberto is an 84-year-old male with history of vascular dementia for which he takes Namzaric at home. He was previously managed with Zyprexa for potential sundowning type syndrome however this did not appear to work and he was admitted to the hospital with acute hallucinations. He was placed on Seroquel 50 mg nightly in addition to melatonin 4 mg nightly and this appears to have helped as helped as he has slept well and denies hallucinations at this time. Plan: 1. I believe the patient is cleared from a neurology perspective to be discharged home. 2. I would continue him on Seroquel 25 mg nightly as well as melatonin 5 mg nightly to aid sleep and regulate his mental status hopefully during the day. 3. Neurology will continue to follow him should he remain in house but may do this on an intermittent basis. Objective - Vital Signs Vital signs: Vital Signs Temp 98.6 F 10/22/24 07:00 Pulse 56 L 10/22/24 07:00 Resp 16 10/22/24 07:00 BP 143/66 10/22/24 07:00 Pulse Ox 98 10/22/24 07:00 FiO2 Intake & Output 10/21/24 10/22/24 10/22/24 18:59 06:59 18:59 Intake Total 118 Balance 118 Intake: Oral 118 Other: Voiding Method Toilet Toilet Toilet # Voids 2 1 - Labs CBC & Chem 7: 10/22/24 04:54 10/22/24 04:54 Labs: Abnormal Lab Results - Last 24 Hours (Table) 10/21/24 10/22/24 10/22/24 Range/Units 14:46 04:54 04:54 MCV 77.6 L (80.0-97.0) FL MCH 24.2 L (27.0-32.0) pg MCHC 31.2 L (32.0-37.0) g/dL RDW 14.7 H (11.5-14.5) % Eosinophils # 0.44 H (0.04-0.35) X 10*3/uL BUN/Creatinine Ratio 25.78 H (12.00-20.00) Ratio Calcium 8.6 L (8.7-10.3) mg/dL Total Bilirubin 1.5 H (0.3-1.2) mg/dL Total Protein 6.0 L (6.2-8.2) g/dL Albumin 3.4 L (3.8-4.9) g/dL Albumin/Globulin Ratio 1.31 L (1.60-3.17) Ratio TSH 0.247 L (0.350-5.500) UIU/ML
== END 2024-10-22 15:38 | disposition home or self-care (01) ==
LOC: EC 14:45 → 6NMEDSUR 19:10
PROVIDERS: ADMIT Internal Medicine; ATTEND Internal Medicine
DX: G93.41 Metabolic encephalopathy (principal); G47.00 Insomnia, unspecified; E78.2 Mixed hyperlipidemia; I25.10 Atherosclerotic heart disease of native coronary artery without angina pectoris; R97.20 Elevated prostate specific antigen [PSA]; R73.03 Prediabetes; M47.16 Other spondylosis with myelopathy, lumbar region; F01.518 Vascular dementia, unspecified severity, with other behavioral disturbance; M19.90 Unspecified osteoarthritis, unspecified site; Z79.82 Long term (current) use of aspirin; Z79.899 Other long term (current) drug therapy; Z87.891 Personal history of nicotine dependence; F29 Unspecified psychosis not due to a substance or known physiological condition; Z91.81 History of falling; Z80.42 Family history of malignant neoplasm of prostate
CPT/HCPCS: 96372; 99285; 36415; 93005; 84439; 80053 ×2; 80048; 84443; 82607; 82140; 84484; 85025 ×3; 81003; 70450; G0378 ×3; J1650